=== PATIENT | female | born 1960 | race Two or more races ===

== ENCOUNTER 2023-12-13 09:22 | Emergency (ER) | payer MEDICAID ==
[~2023-12-13] VITALS: Ht 157.5 cm; Wt 41.8 kg
[2023-12-13 09:31] VITALS: BP 133/86; PULSE 103; RESP 18; TEMP 97.6; O2SAT 98
[2023-12-13] MEDS: ACETAMINOPHEN 500 MG TABLET PO ONE (11:35)
[2023-12-13] MEDS: SODIUM CHLORIDE 0.9% 1,000 ML IV ONE (14:12)
[2023-12-13 14:21] LABS: BASOPHILS % (AUTO) 0.8 % (0.0-2.0); EOSINOPHILS % (AUTO) 0.3 % (1.0-6.0); HEMOGLOBIN 11.9 g/dL (12.0-16.0); LYMPHOCYTES # (AUTO) 1.4 K/uL (1.0-4.8); LYMPHOCYTES % (AUTO) 12.1 % (22.0-44.0); MEAN CORPUSCULAR HEMOGLOBIN 27.4 pg (26.0-34.0); MEAN CORPUSCULAR HGB CONC 32.3 G/dL (31.0-37.0); MEAN CORPUSCULAR VOLUME 85 fL (80-100); MONOCYTES # (AUTO) 0.9 K/uL (0.1-1.0); NEUTROPHILS # (AUTO) 9.3 K/uL (1.8-7.7); NEUTROPHILS % (AUTO) 78.8 % (40.0-70.0); PLATELET COUNT (AUTO) 237 K/uL (150-450); RED BLOOD CELL COUNT(AUTO) 4.36 MIL/uL (4.00-5.20); WHITE BLOOD COUNT (AUTO) 11.8 K/uL (4.5-11.0)
[2023-12-13 14:57] LABS: ANION GAP 10 mmol/L (8-16); CALCIUM, TOTAL 9.6 mg/dL (8.8-10.5); CARBON DIOXIDE 26 mmol/L (22-29); CHLORIDE 97 mmol/L (98-107); CREATININE 0.64 mg/dL (0.60-1.30); GLOMERULAR FILTR. RATE CALC > 60 mL/min (>60); GLUCOSE,RANDOM 100 mg/dL (70-110); POTASSIUM 3.3 mmol/L (3.5-5.1); SODIUM SERUM 133 mmol/L (136-145); UREA NITROGEN, BLOOD 9 mg/dL (7-18)
[2023-12-13 15:03] LABS: ALANINE AMINOTRANSFERASE 10 U/L (12-78); ALKALINE PHOSPHATASE 61 U/L (46-116); ASPARTATE AMINOTRANSFERASE 19 U/L (15-37); BILIRUBIN,TOTAL 0.5 mg/dL (0.1-1.0); TOTAL PROTEIN, SERUM 7.5 g/dL (6.4-8.2)
[2023-12-13] MEDS: POTASSIUM CHLORIDE 10% 40 MEQ/30 ML LIQUID UDCUP PO ONE (15:31)
== END 2023-12-13 15:47 | disposition home or self-care (01) ==
LOC: EMS 09:22
DX: M16.11 Unilateral primary osteoarthritis, right hip (principal); E87.6 Hypokalemia; E86.0 Dehydration
CPT/HCPCS: 99284; 96360; 80053; 85025; 36415; 73502; J7030